=== PATIENT | female | born 1945 | race Caucasian/White ===

== ENCOUNTER 2021-11-16 11:51 | Outpatient (CLI) | payer OTHER, SELFPAY ==
[2021-11-16 13:58] LABS: Albumin* 4.8 g/dL (3.3-5.0); Chloride* 99 mmol/L (96-114); Sodium* 138 mmol/L (135-149)
[2021-11-16 13:59] LABS: Potassium* 4.6 mmol/L (3.6-5.1)
[2021-11-16 14:00] LABS: Cholesterol* 185 mg/dL (90-199)
[2021-11-16 14:01] LABS: Alanine Aminotransferase* 26 U/L (4-35); Alkaline Phosphatase* 49 U/L (40-150); Aspartate Amino Transferase* 39 U/L (12-35); Bilirubin Total* 0.9 mg/dL (0.1-1.5); Blood Urea Nitrogen* 24 mg/dL (7-30); Calcium* 9.3 mg/dL (8.4-10.6); Carbon Dioxide* 30 mmol/L (20-32); Creatinine* 0.9 mg/dL (0.5-1.5); Estimated Glomerular Filt Rate 66 ml/min; Glucose* 103 mg/dL (60-115); HDL Cholesterol* 47 mg/dL (>=50); LDL Cholesterol Calculated 119 mg/dL (<100); Total Protein* 7.8 g/dL (6.0-8.3); Triglycerides* 93 mg/dL (40-149)
== END 2021-11-16 11:52 | disposition home or self-care (01) ==
PROVIDERS: PCP Physician Assistant Medical; Visit Provider Physician Assistant Medical
DX: Z00.00 Encounter for general adult medical examination without abnormal findings (principal); E78.5 Hyperlipidemia, unspecified; I10 Essential (primary) hypertension; I48.0 Paroxysmal atrial fibrillation
CPT/HCPCS: 80053; 80061

== ENCOUNTER 2021-12-27 10:44 | Emergency (ER) | payer OTHER, SELFPAY ==
[2021-12-27] VITALS (7 sets, daily range): BP systolic 107–145; BP diastolic 54–94; PULSE 85–91; RESP 16–18; TEMP 36; O2SAT 94–97; BMI 31.5
--- NOTE | 2021-12-27 11:30 | ED_ITS ---
HPI - General Adult General Chief complaint: Chest Pain Stated complaint: Chest pain Time Seen by Provider: 12/27/21 11:04 Source: patient Mode of arrival: ambulatory Limitations: no limitations History of Present Illness HPI narrative: Patient is a rito 76-year-old female coming in today complaining of chest pain. Pain is located over the left chest wall. Movement makes it worse, staying still does make it feel better. It feels like she can not get her breath all the way inside of her lung because it bothers her. The pain started approximately 7-8 hours ago, woke her up from her sleep. She felt uncomfortable all morning and was unable to really go back to sleep because of it. She denies nausea or vomiting. She is not feeling short of breath. She is not lightheaded or diaphoretic. Patient does have a history of sick sinus syndrome, atrial fibrillation-she does have a pacemaker placed and she is on Xarelto and sotalol. She states that 2 days ago she was blowing leaves, did not feel like it was a particularly vigorous activity for her. She denies lifting anything heavy yesterday. She does state that she was recently started on atorvastatin which cause significant achiness throughout her entire body, several days ago she cut her dose in half and she still feels achy but some of the achiness has improved. No fevers or chills. Normal appetite. She describes the discomfort as a sore ness over the chest wall. Related Data Home Medications Medication Instructions Recorded Confirmed epinephrine 0.3 mg/0.3 mL 0.3 mg IM ONCE 11/07/21 11/21/21 injection, auto-injector sotalol 120 mg tablet 120 mg PO BID 11/07/21 11/21/21 Multivitamins PO 11/21/21 [id number] PO 11/21/21 acetaminophen 325 mg tablet mg PO .As Needed as needed PRN 11/21/21 11/21/21 ascorbic acid (vitamin C) 1,000 mg 1 g PO DAILY 11/21/21 11/21/21 tablet glucosamine PO 11/21/21 Previous Rx's Medication Instructions Recorded rivaroxaban 20 mg tablet 20 mg PO QDAY #90 tabs 11/09/21 atorvastatin 10 mg tablet 10 mg PO QDAY #90 tabs 11/21/21 chlorthalidone 25 mg tablet 12.5 mg PO QDAY #90 tabs 11/21/21 potassium chloride 10 mEq 10 meq PO QDAY #90 caps 11/21/21 capsule,extended release valacyclovir 1 gram tablet 1,000 mg PO BID #10 tabs 11/23/21 Allergies Allergy/AdvReac Type Severity Reaction Status Date / Time bee venom protein (honey bee) Allergy Severe Anaphylaxis Verified 11/21/21 10:09 Review of Systems Status of ROS: Reports: 10 or more systems reviewed and unremarkable except as noted in History and below [facility] Medical History Sick sinus syndrome Urinary tract infection Surgical History H/O colonoscopy Family History Brother Stroke Unknown Aneurysm Social History Smoking Status: Never smoker Little interest or pleasure in doing things: not at all Feeling down, depressed, or hopeless: not at all Exam Narrative: Exam Narrative: Well-nourished well-developed patient in no acute distress. Alert and oriented. Answers questions appropriately. Mood and affect are appropriate. Thoughts are goal oriented and rational. No tangential or magical thinking noted. Patient speaks in full sentences without needing to catch their breath. HEENT: Normocephalic atraumatic. Pupils are equally round reactive to light. Extraocular muscles are intact. Conjunctivae are moist without any icterus noted. Moist mucous membranes. Posterior pharynx is normal. Neck is soft without any lymphadenopathy or thyromegaly. No masses are appreciated. Cardiovascular: Irregularly irregular. She is not tachycardic. I do not appreciate any murmurs. Lungs: Clear to auscultation bilaterally no wheezes rhonchi or rales are appreciated. Patient is able to take deep breaths, but states that it feels uncomfortable. I cannot reproduce her pain on palpation. Abdomen: Soft and nontender nondistended with normal bowel sounds. No guarding or rebound. No masses or organomegaly appreciated. Extremities: Bilateral lower extremities are without edema. Normal DP and PT pulses. Skin: Well perfused without any obvious rashes. Const: Vital Signs, click to edit/add: Vital Signs - 24 hr 12/27/21 10:54 Temperature 96.8 F L Pulse Rate [Pulse Oximeter] 85 Respiratory Rate 18 Blood Pressure [Le ft Upper Arm] 134/66 Pulse Oximetry 96 Oxygen Delivery Me thod Room Air Course Course Hospital Course: Blood work, including serial enzymes were unremarkable. D-dimer was negative. Chest x-ray, read by me, was normal. EKG showed AFib with a pulse of 90, left axis deviation and a left bundle-branch block. Compared to an EKG done in November the atrial fibrillation is new, she was not in AFib before. The left axis deviation and left bundle branch block are not new. Patient states that she has not been in AFib in about a year. Unclear how long she has been in AFib this time around. Patient is denying any dizziness, shortness of breath, lightheadedness. Vital Signs Vital signs: Initial Vital Signs Temperature 96.8 F L 12/27/21 10:54 Temperature Source Temporal Artery Scan 12/27/21 10:54 Pulse Rate 85 12/27/21 10:54 Respiratory Rate 18 12/27/21 10:54 Blood Pressure 134/66 12/27/21 10:54 Blood Pressure Mean 88 12/27/21 10:54 Blood Pressure Position Supine 12/27/21 10:54 Pulse Oximetry 96 12/27/21 10:54 Oxygen Delivery Method 12/27/21 10:54 Vital Signs Temperature 96.8 F L 12/27/21 10:54 Pulse Rate 85 12/27/21 10:54 Respiratory Rate 18 12/27/21 10:54 Blood Pressure 134/66 12/27/21 10:54 Pulse Oximetry 96 12/27/21 10:54 Oxygen Delivery Method 12/27/21 10:54 Temperature 96.8 F L 12/27/21 10:54 Pulse Rate 85 12/27/21 10:54 Respiratory Rate 18 12/27/21 10:54 Blood Pressure 134/66 12/27/21 10:54 Pulse Oximetry 96 12/27/21 10:54 Oxygen Delivery Method 12/27/21 10:54 Medical Decision Making MDM Narrative Medical decision making narrative: 76-year-old female with chest discomfort unclear etiology. We discussed the possibility of GERD, pleurisy, musculoskeletal discomfort. We discussed the possibility of it being in achiness related to her atorvastatin. We did however discussed the possibility that it is cardiovascular related, my suspicion is low but this is not impossible. We discussed monitoring for another 90 minutes, the patient did not feel that this was necessary. Hospital admission is not an option at this time given no available hospital beds. Patient stated that she did feel a hospitalization was necessary. At this time patient felt comfortable being discharged home. She understands that if her symptoms worsen she will return to the ED and have a low threshold for doing so. In the meantime we discussed symptomatic treatment. Patient and were agreeable had no other questions. Patient will send in her pacemaker readings to her financial assistance advisor and follow up accordingly. Medical Records Medical records reviewed: Yes I reviewed the patient's medical records Lab Data Lab results reviewed: Yes I reviewed the patient's lab results Labs: Lab Results 12/27/21 12/27/21 12/27/21 Range/Units 11:00 11:00 11:00 WBC 8.49 (4.50-11.00) K/uL RBC 4.85 (4.00-5.20) m/uL Hgb 15.0 (12.0-16.0) gm/dL Hct 43.6 (33.0-51.0) % MCV 90 (80-100) fL MCH 31 (26-34) pg MCHC 34 (32-36) gm/dL RDW Coeff of Kristin 12.4 (11.5-15.5) % Plt Count 292 (140-440) K/uL Neut % (Auto) 72.3 H (42.0-72.0) % Lymph % (Auto) 17.1 L (20-44) % [place] % (Auto) 8.2 (0.0-11.0) % Eos % (Auto) 1.8 (0.0-7.0) % Baso % (Auto) 0.4 (0.0-3.0) % Neut # (Auto) 6.10 (1.7-7.0) K/uL Lymph # (Auto) 1.50 (0.90-2.90) K/uL [place] # (Auto) 0.70 (0.00-0.90) K/UL Eos # (Auto) 0.15 (0.00-0.50) K/uL Baso # (Auto) 0.03 (0.00-0.30) K/uL Abs Immat Gran (auto) 0.02 (0.00-0.30) K/uL ESR 12 (2-20) mm/hr D-Dimer Quant (PE/DVT) 0.28 (0.00-0.50) ug/ml Sodium (135-149) mmol/L Potassium (3.6-5.1) mmol/L Chloride (96-114) mmol/L Carbon Dioxide (20-32) mmol/L BUN (7-30) mg/dL Creatinine (0.5-1.5) mg/dL Estimated Creat Clear Estimated GFR ml/min Glucose (60-115) mg/dL Calcium (8.4-10.6) mg/dL Total Bilirubin (0.1-1.5) mg/dL Direct Bilirubin (0.0-0.5) mg/dL AST (12-35) U/L ALT (4-35) U/L Alkaline Phosphatase (40-150) U/L C-Reactive Protein (0.5-1.0) mg/dL Total Protein (6.0-8.3) g/dL Albumin (3.3-5.0) g/dL Lipase (23-300) U/L POC Troponin I (0.01-0.04) ng/ml 12/27/21 12/27/21 12/27/21 Range/Units 11:00 11:00 12:40 WBC (4.50-11.00) K/uL RBC (4.00-5.20) m/uL Hgb (12.0-16.0) gm/dL Hct (33.0-51.0) % MCV (80-100) fL MCH (26-34) pg MCHC (32-36) gm/dL RDW Coeff of Kristin (11.5-15.5) % Plt Count (140-440) K/uL Neut % (Auto) (42.0-72.0) % Lymph % (Auto) (20-44) % [place] % (Auto) (0.0-11.0) % Eos % (Auto) (0.0-7.0) % Baso % (Auto) (0.0-3.0) % Neut # (Auto) (1.7-7.0) K/uL Lymph # (Auto) (0.90-2.90) K/uL [place] # (Auto) (0.00-0.90) K/UL Eos # (Auto) (0.00-0.50) K/uL Baso # (Auto) (0.00-0.30) K/uL Abs Immat Gran (auto) (0.00-0.30) K/uL ESR (2-20) mm/hr D-Dimer Quant (PE/DVT) (0.00-0.50) ug/ml Sodium 137 (135-149) mmol/L Potassium 3.6 (3.6-5.1) mmol/L Chloride 97 (96-114) mmol/L Carbon Dioxide 30 (20-32) mmol/L BUN 20 (7-30) mg/dL Creatinine 0.9 (0.5-1.5) mg/dL Estimated Creat Clear 34.38 Estimated GFR 66 ml/min Glucose 108 (60-115) mg/dL Calcium 9.0 (8.4-10.6) mg/dL Total Bilirubin 0.6 (0.1-1.5) mg/dL Direct Bilirubin 0.0 (0.0-0.5) mg/dL AST 28 (12-35) U/L ALT 25 (4-35) U/L Alkaline Phosphatase 55 (40-150) U/L C-Reactive Protein 1.6 H (0.5-1.0) mg/dL Total Protein 7.7 (6.0-8.3) g/dL Albumin 4.6 (3.3-5.0) g/dL Lipase 62 (23-300) U/L POC Troponin I 0.00 L 0.00 L (0.01-0.04) ng/ml Imaging Data Chest x-ray: Attestation: I have reviewed the pertinent imaging results. My impression: No acute findings ECG Data Attestation: I personally reviewed and interpreted this ECG as follows: (Atrial fibrillation, pulse 90, left axis deviation with a left bundle-branch block.) Discharge Plan Discharge Clinical Impression: Chest pain Patient Disposition: Home, Self-Care Condition: Stable Additional Instructions: I would like for you to follow-up with primary care provider this week and have an outpatient stress test scheduled. In the meantime okay to use Tylenol as needed, try using heat to the anterior chest wall. If your pain worsens, you should return to the emergency department right away. Recommend avoiding any rigorous physical activity until your stress test is done. Okay to stop atorvastatin to see if this helps her symptoms. Recommend starting a daily aspirin until you follow-up with your primary care provider. Prescriptions: No Action ascorbic acid (vitamin C) 1,000 mg tablet 1 g PO DAILY Onreq-1-Vaom PO Multivitamins PO acetaminophen 325 mg tablet PO .As Needed as needed PRN Rx Instructions: NO MORE THAN 4000 MG/DAY glucosamine PO potassium chloride 10 mEq capsule, extended release 10 meq PO QDAY Qty: 90 3RF chlorthalidone 25 mg tablet 12.5 mg PO QDAY Qty: 90 3RF atorvastatin 10 mg tablet 10 mg PO QDAY Qty: 90 0RF Rx Instructions: once daily for cholesterol epinephrine 0.3 mg/0.3 mL auto-injector 0.3 mg IM ONCE Rx Instructions: as a single dose; may repeat once sotalol 120 mg tablet 120 mg PO BID rivaroxaban 20 mg tablet 20 mg PO QDAY Qty: 90 3RF Rx Instructions: must administer with evening meal valacyclovir 1 gram tablet 1,000 mg PO BID Qty: 10 3RF Rx Instructions: Take 2 tabs twice a day x 5 days for cold sores Follow Up/Referrals: Mona Rudolph PA-C [Primary Care Provider] - Stand Alone Forms: [employer] Info Instructions
[2021-12-27 11:31] LABS: Basophils Absolute Auto 0.03 K/uL (0.00-0.30); Basophils Percent Auto 0.4 % (0.0-3.0); Eosinophils Absolute Auto 0.15 K/uL (0.00-0.50); Eosinophils Percent Auto 1.8 % (0.0-7.0); Hematocrit 43.6 % (33.0-51.0); Lymphocytes Percent Auto 17.1 % (20-44); Mean Corpuscular HGB Conc 34 gm/dL (32-36); Mean Corpuscular Hemoglobin 31 pg (26-34); Mean Corpuscular Volume 90 fL (80-100); Monocytes Percent Auto 8.2 % (0.0-11.0); Neutrophils Percent Auto 72.3 % (42.0-72.0); Platelet Count* 292 K/uL (140-440); RDW Coefficient of Variation % 12.4 % (11.5-15.5); Red Blood Count 4.85 m/uL (4.00-5.20); White Blood Count* 8.49 K/uL (4.50-11.00)
[2021-12-27 11:35] LABS: Slide Review Reflex No
[2021-12-27 11:46] LABS: Albumin* 4.6 g/dL (3.3-5.0); Chloride* 97 mmol/L (96-114)
[2021-12-27 11:47] LABS: Potassium* 3.6 mmol/L (3.6-5.1); Sodium* 137 mmol/L (135-149)
[2021-12-27 11:49] LABS: Creatinine* 0.9 mg/dL (0.5-1.5); Est. Creatinine Clearance* 34.38; Estimated Glomerular Filt Rate 66 ml/min
[2021-12-27 11:50] LABS: Alanine Aminotransferase* 25 U/L (4-35); Alkaline Phosphatase* 55 U/L (40-150); Aspartate Amino Transferase* 28 U/L (12-35); Bilirubin Total* 0.6 mg/dL (0.1-1.5); Blood Urea Nitrogen* 20 mg/dL (7-30); Carbon Dioxide* 30 mmol/L (20-32); Glucose* 108 mg/dL (60-115); Lipase* 62 U/L (23-300); Total Protein* 7.7 g/dL (6.0-8.3)
[2021-12-27 11:53] LABS: C Reactive Protein* 1.6 mg/dL (0.5-1.0)
[2021-12-27 12:18] LABS: D Dimer Quantitative* 0.28 ug/ml (0.00-0.50)
[2021-12-27 12:23] LABS: Erythrocyte SedimentationRate* 12 mm/hr (2-20)
--- NOTE | 2021-12-27 12:36 | CRLHL7_ITS ---
For Patients: As a result of the Century Cures Act, medical imaging exams and procedure reports are released immediately into your electronic medical record. You may view this report before your referring provider. If you have questions, please contact your health care provider. INDICATION: Chest pain TECHNIQUE: Chest 2 views. COMPARISON: 07/22/21 FINDINGS: Cardiovascular and mediastinum: Stable are status. Mediastinum is within normal limits. Left-sided transvenous pacer device. Lungs and pleural spaces: Lungs are clear. No sign of infiltrate or mass. No sign of pleural effusion. No pneumothorax. Bones and soft tissues: No significant findings. IMPRESSION: No acute findings. Dictated by Zach Baeza MD @ 12/27/2021 1:29:35 PM Dictated by: Zach Baeza MD @ 12/27/2021 13:29:41 (Electronically Signed)
== END 2021-12-27 14:08 | disposition home or self-care (01) ==
PROVIDERS: Emergency Provider Family Medicine; PCP Physician Assistant Medical
DX: R07.9 Chest pain, unspecified (principal); I48.91 Unspecified atrial fibrillation; I49.5 Sick sinus syndrome; Z95.0 Presence of cardiac pacemaker; Z79.01 Long term (current) use of anticoagulants; Z79.899 Other long term (current) drug therapy; Z82.49 Family history of ischemic heart disease and other diseases of the circulatory system; I44.7 Left bundle-branch block, unspecified
CPT/HCPCS: 36415; 71046; 80048; 80076; 83690; 85025; 85379; 85651; 86140; 93005; 94761; 99284; 99285

== ENCOUNTER 2022-11-17 08:34 | Outpatient (CLI) | payer OTHER, SELFPAY | END 2022-11-17 08:35 | disposition home or self-care (01) | LOC: NFLDREF 13:14 | PROVIDERS: PCP Physician Assistant Medical; Referring Provider Physician Assistant Medical; Visit Provider Physician Assistant Medical | DX: Z00.00 Encounter for general adult medical examination without abnormal findings (principal); R73.03 Prediabetes; E78.5 Hyperlipidemia, unspecified; I10 Essential (primary) hypertension | CPT/HCPCS: 80048; 80061 ==

== ENCOUNTER 2022-12-06 15:14 | Outpatient (CLI) | payer OTHER, SELFPAY ==
--- NOTE | 2022-12-06 15:30 | CRLHL7_ITS ---
For Patients: As a result of the Century Cures Act, medical imaging exams and procedure reports are released immediately into your electronic medical record. You may view this report before your referring provider. If you have questions, please contact your health care provider. DXA BONE MINERAL DENSITY STUDY Current height (in): 61.1. Weight (lb): 164.0. Menopause age: 54. Ethnicity: White. Reason for exam: Encounter for general adult medical examination. 1. Have you had a previous hip or vertebral fracture? No. 2. Have you had any fractures during your adult life which did not result from significant trauma (e.g., auto accident)? No. 3. Did either of your parents have a hip fracture? Yes. 4. Do you smoke? No. 5. Have you ever taken Glucocorticoids? No. 6. Do you have rheumatoid arthritis? No. 7. Do you have secondary osteoporosis? No. 8. Do you drink 3 or more alcoholic drinks per day? No. 9. Are you being treated for osteoporosis? No. 10. Have you ever taken any of the following medications: Actonel, Evista, Fosamax, Miacalcin, Reclast, Boniva, Forteo, HRT (i.e. estrogen/hormone therapy), Protelos, Prolia, Vitamin D, Calcium, other ??? please specify. ANSWER: Yes, calcium. 11. Do you have any of the following medical conditions: Anorexia or bulimia, asthma or emphysema, end stage renal disease, hyperparathyroidism, any seizure disorders, cancer, inflammatory bowel diseases, hysterectomy, other ??? please specify. ANSWER: No. 12. What was your maximum height (inches)? 62.5. 13. Do you perform weight bearing exercise regularly? No. 14. Do you regularly consume dairy products? Yes. 15. Do you drink caffeinated beverages? Yes. 16. At what age did your period start? 12. 17. Are you premenopausal? No. 18. How many full term pregnancies have you had? 2. 19. Have you ever missed your period for more than 6 months in a row (not including or menopause)? No. TECHNIQUE: Bone mineral density study was performed using the [employer]. FINDINGS: The results of the study expressed as bone mineral density (BMD) are as follows: Lumbar spine L1 to L3: BMD: 1.029 g/cm2. T-score: 0.1. Z-score: 2.6. Neck Left: BMD: 0.657 g/cm2. T-score: -1.7. Z-score: 0.5. Right: BMD: 0.625 g/cm2. T-score: -2.0. Z-score: 0.2. Total Left: BMD: 0.787 g/cm2. T-score: -1.3. Z-score: 0.6. Right: BMD: 0.831 g/cm2. T-score: -0.9. Z-score: 1.0. IMPRESSION: Osteopenia. *Comparison exams done prior to 07/2019 were performed on different unit, [employer]. COMPARISON: Compared with scan of 01/07/2020, the bone mineral density has increased by 2.5 percent at the spine and decreased by 0.7 percent at the hip. FRAX 10-year Fracture Risk Major Osteoporotic Fracture: 24 percent Hip Fracture: 14 percent Reported Risk Factors: [place] () Neck BMD = 0.625, BMI = 31.0 Zach Batista M.D. Diagnostic Radiologist [email or web address] Transcribed: 9:19 am DW/Dictated by: Zach Batista MD @ 12/07/2022 6:20:00 AM (Electronically Signed)
== END 2022-12-06 15:15 | disposition home or self-care (01) ==
LOC: RAD 15:15
PROVIDERS: PCP Physician Assistant Medical; Visit Provider Physician Assistant Medical
DX: Z13.820 Encounter for screening for osteoporosis (principal); M85.89 Other specified disorders of bone density and structure, multiple sites; Z78.0 Asymptomatic menopausal state
CPT/HCPCS: 77080

== ENCOUNTER 2023-05-30 13:00 | Outpatient (RCR) | payer OTHER, SELFPAY | END 2023-08-07 13:47 | disposition home or self-care (01) | PROVIDERS: PCP Physician Assistant Medical; Visit Provider Orthopaedic Surgery | DX: Z98.890 Other specified postprocedural states (principal); R26.81 Unsteadiness on feet; R26.9 Unspecified abnormalities of gait and mobility; R53.1 Weakness; R52 Pain, unspecified; Z51.89 Encounter for other specified aftercare | CPT/HCPCS: 97110; 97112; 97116; 97140; 97162 ==

== ENCOUNTER 2023-11-23 09:40 | Outpatient (CLI) | payer OTHER, SELFPAY | END 2023-11-23 09:41 | disposition home or self-care (01) | LOC: NFLDREF 11-27 22:10 | PROVIDERS: PCP Physician Assistant Medical; Referring Provider Physician Assistant Medical; Visit Provider Physician Assistant Medical | DX: R73.03 Prediabetes (principal); E78.5 Hyperlipidemia, unspecified; E66.9 Obesity, unspecified; I10 Essential (primary) hypertension; I48.0 Paroxysmal atrial fibrillation | CPT/HCPCS: 80053; 80061; 84443 ==

== ENCOUNTER 2024-11-24 09:39 | Outpatient (CLI) | payer MEDICARE, SELFPAY | END 2024-11-24 09:40 | disposition home or self-care (01) | LOC: NFLDREF 11-25 14:31 | PROVIDERS: PCP Physician Assistant Medical; Referring Provider Physician Assistant Medical; Visit Provider Physician Assistant Medical | DX: Z00.00 Encounter for general adult medical examination without abnormal findings (principal); Z13.6 Encounter for screening for cardiovascular disorders; I50.9 Heart failure, unspecified | CPT/HCPCS: 80053; 80061; 84443 ==

== ENCOUNTER 2024-12-17 14:33 | Outpatient (CLI) | payer MEDICARE, SELFPAY ==
--- NOTE | 2024-12-17 15:00 | CRLHL7_ITS ---
For Patients: As a result of the Century Cures Act, medical imaging exams and procedure reports are released immediately into your electronic medical record. You may view this report before your referring provider. If you have questions, please contact your health care provider. DXA BONE MINERAL DENSITY STUDY Reason for exam: Osteoporosis. Current height (in): 60.5. Weight (lb): 174. Menopause age: 54. Ethnicity: White. 1. Have you had a previous hip or vertebral fracture? No. 2. Have you had any fractures during your adult life which did not result from significant trauma (e.g., auto accident)? No. 3. Did either of your parents have a hip fracture? Yes. 4. Do you smoke? No. 5. Have you ever taken Glucocorticoids? Yes. 6. Do you have rheumatoid arthritis? No. 7. Do you have secondary osteoporosis? No. 8. Do you drink 3 or more alcoholic drinks per day? No. 9. Are you being treated for osteoporosis? No. 10. Have you ever taken any of the following medications: Actonel, Evista, Fosamax, Miacalcin, Reclast, Boniva, Forteo, HRT (i.e. estrogen/hormone therapy), Protelos, Prolia, Vitamin D, Calcium, other ??? please specify. ANSWER: Yes, Calcium. 11. Do you have any of the following medical conditions: Anorexia or bulimia, asthma or emphysema, end stage renal disease, hyperparathyroidism, any seizure disorders, cancer, inflammatory bowel diseases, hysterectomy, other ??? please specify. ANSWER: No. 12. What was your maximum height (inches)? 62.5. 13. Do you perform weight bearing exercise regularly? No. 14. Do you regularly consume dairy products? Yes. 15. Do you drink caffeinated beverages? Yes. 16. At what age did your period start? 12. 17. Are you premenopausal? No. 18. How many full term pregnancies have you had? 2. 19. Have you ever missed your period for more than 6 months in a row (not including or menopause)? No. TECHNIQUE: Bone mineral density study was performed using the [employer]. FINDINGS: The results of the study expressed as bone mineral density (BMD) are as follows: Lumbar spine L1 to L3: BMD: 1.035 g/cm2. T-score: 0.2. Z-score: 2.7. Neck Left: BMD: 0.660 g/cm2. T-score: -1.7. Z-score: 0.6. Right: BMD: 0.605 g/cm2. T-score: -2.2 . Z-score: 0.1. Total Left: BMD: 1.784 g/cm2. T-score: -1.3 . Z-score: 0.7. Right: BMD: 0.801 g/cm2. T-score: -1.2. Z-score: 0.9. IMPRESSION: Osteopenia. *Comparison exams done prior to 07/2019 were performed on different unit, [employer]. COMPARISON: Compared with scan of 12/06/2022, the bone mineral density has increased by 0.5 percent at the spine and decreased by 2.0 percent at the hip. Compared with scan of 01/07/2020, the bone mineral density has increased by 2.5 percent at the spine and decreased by 0.7 percent at the hip. FRAX 10-year Fracture Risk Major Osteoporotic Fracture: 41 percent Hip Fracture: 28 percent Reported Risk Factors: [place] () Neck BMD=0.605, BMI=33.4, parental fracture, glucocorticoids Zach Batista M.D. Diagnostic Radiologist [email or web address] SP/Dictated by: Zach Batista MD @ 12/17/2024 4:21:00 PM (Electronically Signed)
== END 2024-12-17 14:34 | disposition home or self-care (01) ==
LOC: RAD 14:34
PROVIDERS: PCP Physician Assistant Medical; Visit Provider Physician Assistant Medical
DX: M81.0 Age-related osteoporosis without current pathological fracture (principal); M85.89 Other specified disorders of bone density and structure, multiple sites; Z78.0 Asymptomatic menopausal state
CPT/HCPCS: 77080

== ENCOUNTER 2025-01-30 16:15 | Outpatient (CLI) | payer MEDICARE, SELFPAY | END 2025-01-30 16:16 | disposition home or self-care (01) | LOC: NFLDREF 02-05 15:49 | PROVIDERS: PCP Physician Assistant Medical; Referring Provider Physician Assistant Medical; Visit Provider Physician Assistant | DX: R35.0 Frequency of micturition (principal) | CPT/HCPCS: 87086 ==

== ENCOUNTER 2025-02-18 07:06 | Outpatient (CLI) | payer MEDICARE, SELFPAY | END 2025-02-18 07:07 | disposition home or self-care (01) | LOC: NFLDREF 02-23 11:24 | PROVIDERS: PCP Physician Assistant Medical; Referring Provider Physician Assistant Medical; Visit Provider Physician Assistant Medical | DX: N39.0 Urinary tract infection, site not specified (principal); B96.20 Unspecified Escherichia coli [E. coli] as the cause of diseases classified elsewhere | CPT/HCPCS: 87086 ==